=== PATIENT | female | born 1975 | race Caucasian/White ===

== ENCOUNTER 2018-07-21 23:01 | Emergency (ER) | payer MEDICARE ==
[2018-07-21] MEDS ORDERED: BENADRYL 50 MG/ML IM ONE (23:35)
[2018-07-21] MEDS ORDERED: solu-CORTEF 250MG ONE (23:40)
[2018-07-21] MEDS ORDERED: BENADRYL 50 MG/ML ONE (23:40)
--- NOTE | 2018-07-21 23:42 | ERPHSYRPT ---
- History of Present Illness Time Seen by Provider: 07/21/18 23:37 Source: patient Exam Limitations: no limitations Patient Subjective Stated Complaint: pt states she has a bug bite on her rt breast and feels like her throat is swelling. Triage Nursing Assessment: pt alert and oriented, answers questions approp. respirations tachy. lungs clear with good air movement bilat. raised red area approx 5 cm in diameter to rt breast. Physician History: pt states she has a bug bite on her rt breast and feels like her throat is swelling. raised red area approx 5 cm in diameter to rt breast. Timing/Duration: today Severity: moderate Associated Symptoms: shortness of breath Allergies/Adverse Reactions: hydrocodone Allergy (Verified 07/21/18 23:31) Swelling of Tongue and Lips morphine Allergy (Verified 07/21/18 23:31) Swelling of Tongue and Lips oxycodone Allergy (Verified 07/21/18 23:31) Swelling of Tongue and Lips sulfamethoxazole [From Julra] Allergy (Verified 07/21/18 23:31) Swelling of Tongue and Lips trimethoprim [From Julra] Allergy (Verified 07/21/18 23:31) Swelling of Tongue and Lips Home Medications: Alprazolam 1 mg [Xanax 1 mg] 1 mg PO BID 07/21/18 [History] Escitalopram Oxalate 10 mg [Lexapro 10 MG] 10 mg PO DAILY 07/21/18 [History] Metformin HCl 1,000 mg PO BID 07/21/18 [History] Hx Tetanus, Diphtheria Vaccination/Date Given: Yes Hx Influenza Vaccination/Date Given: No Hx Pneumococcal Vaccination/Date Given: No Immunizations Up to Date: Yes - Review of Systems Constitutional: No Fever, No Chills Eyes: No Symptoms Ears, Nose, & Throat: No Symptoms Respiratory: No Cough, No Dyspnea Cardiac: No Chest Pain, No Edema, No Syncope Abdominal/Gastrointestinal: No Abdominal Pain, No Nausea, No Vomiting, No Diarrhea Genitourinary Symptoms: No Dysuria Musculoskeletal: No Back Pain, No Neck Pain Skin: Rash Neurological: No Dizziness, No Focal Weakness, No Sensory Changes Psychological: No Symptoms Endocrine: No Symptoms All Other Systems: Reviewed and Negative - Past Medical History Pertinent Past Medical History: Yes Endocrine Medical History: Diabetes Type II, Hypothyroidism Musculoskeletal History: Arthritis GI Medical History: Ulcer Psycho-Social History: Anxiety, Depression, Panic Disorder Other Medical History: ddd - Past Surgical History Past Surgical History: Yes Gastrointestinal: Cholecystectomy Musculoskeletal: Orthopedic Surgery Female Surgical History: Section, Tubal Ligation Other Surgical History: partial thyroidectomy - Social History Smoking Status: Current some day smoker How long have you smoked: 28 yrs Exposure to second hand smoke: No Drug Use: none Patient Lives Alone: No - Female History Hx Last Menstrual Period: last week Hx Now: No - Nursing Vital Signs Nursing Vital Signs: Initial Vital Signs Temperature 98.1 F 07/21/18 23:12 Pulse Rate 95 H 07/21/18 23:12 Respiratory Rate 24 07/21/18 23:12 Blood Pressure 128/80 07/21/18 23:12 O2 Sat by Pulse Oximetry 100 07/21/18 23:12 Pain Scale Pain Intensity 5 - Physical Exam General Appearance: no apparent distress, alert Eye Exam: PERRL/EOMI, eyes nml inspection Ears, Nose, Throat Exam: normal ENT inspection, TMs normal, pharynx normal, moist mucous membranes Neck Exam: normal inspection, non-tender, supple, full range of motion Respiratory Exam: normal breath sounds, lungs clear, No respiratory distress Cardiovascular Exam: regular rate/rhythm, normal heart sounds, normal peripheral pulses Gastrointestinal/Abdomen Exam: soft, normal bowel sounds, No tenderness, No mass Back Exam: normal inspection, normal range of motion, No CVA tenderness, No vertebral tenderness Extremity Exam: normal inspection, normal range of motion, pelvis stable Neurologic Exam: alert, oriented x 3, cooperative, normal mood/affect, nml cerebellar function, nml station & gait, sensation nml, No motor deficits Skin Exam: normal color, warm, dry, No rash Lymphatic Exam: No adenopathy SpO2: 100 Oxygen Delivery: Room Air - Course Nursing assessment & vital signs reviewed: Yes Ordered Tests: Medication Summary Generic Name Dose Route Start Last Admin Trade Name Freq PRN Reason Stop Dose Admin Hydrocortisone Sodium Succinate 250 mg 07/21/18 23:45 Solu-Cortef 250mg IM 07/21/18 23:46 STAT ONE Discontinued Medications Generic Name Dose Route Start Last Admin Trade Name Freq PRN Reason Stop Dose Admin Diphenhydramine HCl 50 mg 07/21/18 23:35 Benadryl 50 Mg/Ml IM 07/21/18 23:36 STAT ONE - Progress Progress: improved Counseled pt/family regarding: diagnosis, need for follow-up - Departure Time of Disposition: 23:41 Departure Disposition: Home Clinical Impression: Allergic reaction to bee sting Condition: Stable Critical Care Time: No Referrals: CALEB ROLAND [Primary Care Provider] - Instructions: Anaphylaxis Additional Instructions: ALLERGIC REACTION 1. There are several different reasons for the cause of an allergic reaction. If you are aware of a trigger, continue to avoid the problem. 2. If at any time you experience any of these signs or symptoms, you should seek medical attention immediately: A. Sudden onset of rash B. Wheezing C. Shortness of breath D. Thick tongue E. Dizziness 3. If you experience an allergic reaction and are treated in the emergency department, you should follow up with your family physician in order to determine how you will need to handle your allergy. take benadryl 25 mg po four times a day for 3 days and medrol dosepak as prescribed. Please follow the instructions given to you. Please take your medication as prescribed if given. If symptoms recur or get worse, come back to the emergency room if you cannot reach your primary care physician, or call your primary care physician for an appointment. Again if your symptoms get worse, come back to the emergency room. Thanks for visiting emergency room, and let us take care of you. Prescriptions: Methylprednisolone Packet [Medrol Dosepack] 4 mg PO UD #30 packet
[2018-07-21] MEDS ORDERED: solu-CORTEF 250MG IM ONE (23:45)
[2018-07-22 01:06] VITALS: BP 108/56; PULSE 75; O2SAT 97
== END 2018-07-22 00:10 | disposition home or self-care (01) ==
LOC: ED 23:01
DX: T63.441A Toxic effect of venom of bees, accidental (unintentional), initial encounter (principal)
CPT/HCPCS: 96372; 99284; J1200; J1720

== ENCOUNTER 2018-10-27 21:12 | Emergency (ER) | payer MEDICARE ==
[2018-10-27] MEDS ORDERED: DUONEB 0.5-3 MG/3 ml Neb IH ONE ×2 (21:54→22:03)
--- NOTE | 2018-10-27 21:54 | ERPHSYRPT ---
- History of Present Illness Time Seen by Provider: 10/27/18 21:28 Source: patient Exam Limitations: clinical condition Patient Subjective Stated Complaint: pt states she has been coughing since last night. states cough ins productive with thick yellow sputum. c/o pain in backw ith deep breath Triage Nursing Assessment: pt alert and oriented, answers questions approp. short of breath with exertion. respirations nonlabored at rest with lungs cta. skin pink warm and dry. Physician History: PATIENT COMPLAINS OF SORETHROAT PRODUCTIVE COUGH, AND SLIGHT DIFFICULTY BREATHING. DENIES CHEST PAIN, FEVER OR CHILLS. Timing/Duration: day(s) Cough Quality/Degree: productive cough Possible Cause: occasional episodes Modifying Factors: Improves With: coughing, exertion Associated Symptoms: nasal congestion, sore throat, wheezing International travel in last 2 weeks: No Allergies/Adverse Reactions: hydrocodone Allergy (Verified 10/27/18 21:38) Swelling of Tongue and Lips morphine Allergy (Verified 10/27/18 21:38) Swelling of Tongue and Lips oxycodone Allergy (Verified 10/27/18 21:38) Swelling of Tongue and Lips sulfamethoxazole [From Septra] Allergy (Verified 10/27/18 21:38) Swelling of Tongue and Lips trimethoprim [From Septra] Allergy (Verified 10/27/18 21:38) Swelling of Tongue and Lips Home Medications: Alprazolam 1 mg [Xanax 1 mg] 1 mg PO BID 07/21/18 [History] Metformin HCl 1,000 mg PO BID 07/21/18 [History] Levothyroxine Sodium 75 Mcg [Synthroid 75 Mcg] 75 mcg PO DAILY 10/27/18 [ History] Hx Tetanus, Diphtheria Vaccination/Date Given: Yes Hx Influenza Vaccination/Date Given: Yes Hx Pneumococcal Vaccination/Date Given: Yes Immunizations Up to Date: Yes - Review of Systems Constitutional: No Fever, No Chills Eyes: No Symptoms Ears, Nose, & Throat: No Symptoms Respiratory: No Cough, No Dyspnea Cardiac: No Symptoms, No Chest Pain, No Edema, No Syncope Abdominal/Gastrointestinal: No Symptoms, No Abdominal Pain, No Nausea, No Vomiting, No Diarrhea Genitourinary Symptoms: No Dysuria Musculoskeletal: No Symptoms, No Back Pain, No Neck Pain Skin: No Rash Neurological: No Dizziness, No Focal Weakness, No Sensory Changes Psychological: No Symptoms Endocrine: No Symptoms All Other Systems: Reviewed and Negative - Past Medical History Pertinent Past Medical History: Yes Endocrine Medical History: Diabetes Type II, Hypothyroidism Musculoskeletal History: Arthritis GI Medical History: Ulcer Psycho-Social History: Anxiety, Depression, Panic Disorder Other Medical History: ddd - Past Surgical History Past Surgical History: Yes Gastrointestinal: Cholecystectomy Musculoskeletal: Orthopedic Surgery Female Surgical History: Section, Tubal Ligation Other Surgical History: partial thyroidectomy - Social History Smoking Status: Current every day smoker How long have you smoked: 28 yrs Exposure to second hand smoke: Yes Drug Use: none Patient Lives Alone: No - Female History Hx Last Menstrual Period: 10/18/18 Hx Now: No - Nursing Vital Signs Nursing Vital Signs: Initial Vital Signs Temperature 98.5 F 10/27/18 21:25 Pulse Rate 89 10/27/18 21:25 Respiratory Rate 20 10/27/18 21:25 Blood Pressure 151/63 10/27/18 21:25 O2 Sat by Pulse Oximetry 97 10/27/18 21:25 Pain Scale Pain Intensity 6 - Physical Exam General Appearance: no apparent distress Eye Exam: PERRL/EOMI Ears, Nose, Throat Exam: normal ENT inspection, pharyngeal erythema Neck Exam: normal inspection, non-tender Respiratory Exam: diminished breath sounds, wheezing (THERE ARE TERMINAL EXPIRATORY WHEEZES, NO RHONCHI) Cardiovascular Exam: regular rate/rhythm Extremity Exam: normal inspection Neurologic Exam: alert, oriented x 3 Skin Exam: normal color SpO2 Interpretation: normal SpO2: 97 Oxygen Delivery: Room Air Ordered Tests: Active Orders 24 hr Category Date Time Status Respiratory Nebulizer STAT RT 10/27/18 21:55 Completed Respiratory Therapy Assessment DAILY RT 10/27/18 22:11 Completed Medication Summary Discontinued Medications Generic Name Dose Route Start Last Admin Trade Name Freq PRN Reason Stop Dose Admin Albuterol/Ipratropium 3 ml 10/27/18 21:54 10/27/18 22:06 Duoneb 0.5-3 Mg/3 Ml Neb IH 10/27/18 21:55 3 ml STAT ONE Administration Albuterol/Ipratropium Confirm 10/27/18 22:03 Duoneb 0.5-3 Mg/3 Ml Neb Administered 10/27/18 22:04 Dose 3 ml IH .STK-MED ONE Amoxicillin/Clavulanate Potassium 875 mg 10/27/18 22:50 Augmentin 875-125 Tablet PO 10/27/18 22:51 STAT ONE Amoxicillin/Clavulanate Potassium 875 mg 10/27/18 22:50 Augmentin 875-125 Tablet PO 10/27/18 22:51 STAT ONE Lab/Rad Data: Laboratory Results 10/27/18 Range/Units 22:11 Influenza Type A Ag NEGATIVE (NEGATIVE) Influenza Type B Ag NEGATIVE (NEGATIVE) RSV (PCR) NEGATIVE (Negative) Group A Strep Antibody NEGATIVE (NEGATIVE) - Progress Progress: improved Progress Note: 10/27/18 22:59 ALL LAB TEST REVIEWED AND ARE NORMAL. ADMINISTERED AUGMENTIN 875MG ORALLY, DUONEB AEROSOL [place] 10/27/18 23:00 Counseled pt/family regarding: lab results, diagnosis, need for follow-up - Departure Time of Disposition: 23:17 Departure Disposition: Home Clinical Impression: ACUTE BRONCHITIS WITH BRONCHIOSPASM Condition: Stable Critical Care Time: No Referrals: CALEB ROLAND [Primary Care Provider] - Additional Instructions: BEGIN ANTIBIOTIC AUGMENTIN 875MG TWICE DAILY FOR 10 DAYS. XOPENEX 1.25MG AEROSOL TREATMENT EVERY 4-6 HOURS NEEDED. FOLLOWUP WITH YOUR PRIMARY CARE PROVIDER IN 1 WEEK. RETURN TO EMERGENCY FOR DIFFICULTY BREATHING. Prescriptions: Levalbuterol HCl 1.25 MG/0.5M* [Xopenex 1.25 MG/0.5 ML UD NEBULE] 1.25 mg IH Q4H PRN PRN #30 neb PRN Reason: DIFFICULTY BREATHING Amox Tr/Potass Clav. 875 mg [Augmentin 875-125 Tablet] 1 each PO BID #20 tablet
[2018-10-27 22:48] LABS: INFLUENZA A NEGATIVE (NEGATIVE); INFLUENZA B NEGATIVE (NEGATIVE); RESPIRATORY SYNCTIAL VIRUS NEGATIVE (Negative)
[2018-10-27] MEDS ORDERED: Augmentin 875-125 Tablet PO ONE ×2 (22:50)
[2018-10-27] MEDS ORDERED: Augmentin 875-125 Tablet ONE (22:58)
[2018-10-27 23:12] VITALS: BP 125/61
[2018-10-27 23:28] VITALS: PULSE 86; O2SAT 98
== END 2018-10-27 23:28 | disposition home or self-care (01) ==
LOC: ED 21:12
DX: J20.9 Acute bronchitis, unspecified (principal); Z79.899 Other long term (current) drug therapy
CPT/HCPCS: 87631; 87651; 94640; 99284; A9270-GY